=== PATIENT | male | born 1955 | race Caucasian/White ===

== ENCOUNTER → 2016-03-05 | Outpatient (CLI) | payer OTHER ==
[~2016-03-05] MED LIST: LOSARTAN POTASS50 MG PO; METOPROLOL TART25 MG PO
== END | disposition home or self-care (01) ==
LOC: CDC 09:47
DX: Z01.810 Encounter for preprocedural cardiovascular examination (principal); K52.9 Noninfective gastroenteritis and colitis, unspecified
CPT/HCPCS: 93000

== ENCOUNTER 2016-03-16 07:19 | Day surgery (SDC) | payer OTHER ==
[~2016-03-16] VITALS: Ht 175.3 cm; Wt 88.5 kg
[~2016-03-16 07:19] MED LIST changes: +ASPIR 8181 M1 PO; +COZAAR50 MG PO; +LOPRESSOR50 MG PO
[2016-03-16 08:06] VITALS: BP 109/79
[2016-03-16] MEDS ORDERED: PERCOCET 5/31 TABLET PO (09:16)
[2016-03-16] MEDS ORDERED: COLACE100 MG PO (09:16)
[2016-03-16 11:25] VITALS: BP 108/64
[2016-03-16 12:16] VITALS: BP 99/60
[2016-03-16 13:05] VITALS: BP 100/62
== END 2016-03-16 13:14 | disposition home or self-care (01) ==
LOC: SDC 07:19
DX: K42.9 Umbilical hernia without obstruction or gangrene (principal); E78.5 Hyperlipidemia, unspecified; R42 Dizziness and giddiness; I10 Essential (primary) hypertension
CPT/HCPCS: C1781; J0131; J0690; J1100; J1885; J2250; J2405; J2710; J3010